=== PATIENT | female | born 1945 | race Two or more races ===

== ENCOUNTER 2016-04-06 15:41 | Emergency (ER) | payer MEDICARE, OTHER ==
[~2016-04-06] VITALS: Ht 160 cm; Wt 77.1 kg
[2016-04-06] MEDS ORDERED: SYNTHROID75 MCG ORAL (15:59)
--- NOTE | 2016-04-06 16:28 | Emergency Room Report ---
History of Present Illness General Chief Complaint: Eye Problems Source: Patient Present Illness HPI 70-year-old female presents emergency department complaining of bilateral itchy , watery eyes with discharge x3 days. Patient has a history of allergies. Denies photophobia, fb sensation, or eye pain. Patient also reports increasing urinary frequency denies hematuria or dysuria. Patient denies nausea, vomiting , fevers, chills. Patient reports recent upper respiratory illness consisting of sneezing, nasal congestion and rhinorrhea. Pt also complains of itchy rash of the scalp x 2 weeks. Denies CP, Palpitations, LOC, AMS, dizziness, Changes in Vision, Sensation, paresthesias, or a sudden severe headache. Patient also is requesting medication refill of meclizine which she takes intermittently for dizziness at nighttime. Allergies: Coded Allergies: No Known Allergies (Unverified , 04/06/16) Patient History Past Medical History: see triage record Past Surgical History: none Pertinent Family History: none Now: No Immunizations: UTD Reviewed Nursing Documentation: PMH: Agreed, PSxH: Agreed Nursing Documentation-PMH Past Medical History: No History, Except For Hx Hypertension: Yes Review of Systems All Other Systems: negative except mentioned in HPI Physical Exam Vital Signs Date Time Temp Pulse Resp B/P Pulse Ox O2 Delivery O2 Flow Rate FiO2 04/06/16 15:54 97.7 86 16 149/86 100 Room Air Sp02 EP Interpretation: reviewed, normal General Appearance: no apparent distress, alert, GCS 15, non-toxic Head: normocephalic, atraumatic Eyes: bilateral eye PERRL, bilateral eye normal inspection, bilateral eye other - white d/c noted with increased lacrimation bilaterally, no erythema noted at this time. no evidence of infestation. ENT: hearing grossly normal, normal pharynx, no angioedema, normal voice, TMs + canals normal, uvula midline, moist mucus membranes Neck: full range of motion, supple/symm/no masses Respiratory: chest non-tender, lungs clear, normal breath sounds, speaking full sentences Cardiovascular #1: regular rate, rhythm, no edema Gastrointestinal: normal bowel sounds, non tender, soft, no guarding, no rebound Rectal: deferred Genitourinary: normal inspection, no CVA tenderness Neurologic: alert, oriented x3, responsive, motor strength/tone normal, sensory intact, cerebellar normal, normal gait, speech normal, no pronator, other - no dizziness at this time. negative kitchen's sign Psychiatric: judgement/insight normal, memory normal, mood/affect normal, no suicidal/homicidal ideation Skin: normal color, warm/dry, well hydrated, rash - scaling rash noted on the scalp diffusely suspicious for sebhorreic dermatitis. no evidence of infestion / lice noted. Lymphatic: no adenopathy Medical Decision Making PA Attestation Dr. Shields is my supervising Physician whom patient management has been discussed with. Diagnostic Impression: Primary Impression: Conjunctivitis of both eyes Qualified Codes: H10.33 - Unspecified acute conjunctivitis, bilateral Additional Impression: Tinea capitis ER Course 70-year-old female presents emergency department complaining of bilateral itchy , watery eyes with discharge x3 days. Patient has a history of allergies. Denies photophobia, fb sensation, or eye pain. Patient also reports increasing urinary frequency denies hematuria or dysuria. Patient denies nausea, vomiting , fevers, chills. Patient reports recent upper respiratory illness consisting of sneezing, nasal congestion and rhinorrhea. Pt also complains of itchy rash of the scalp x 2 weeks.and requiring a medication refill for meclizine. no vertigo at this time. pt. states intermittently requires meclizine at bedtime for dizziness sensations. Ddx considered but are not limited to: corneal abrasion, acute glaucoma, globe rupture, FB, Corneal Ulcer, conjunctivitis. Iridis, orbital cellulitis,keratitis , sinusitis, dermatitis, tinea, UTI Vital signs: are WNL, pt. is afebrile H&PE are most consistent with: conjunctivitis of both eyes most likely allergic , however will tx with abx. due to presence of d/c noted. pt. also has rash suspicious for tinea capitis/seborrheic dermatitis. ORDERS: -UA: wnl /unremarkable no evidence of infection ED INTERVENTIONS: none at this time. DISCHARGE: At this time pt. is stable for d/c to home. Will provide printed patient care instructions, and any necessary prescriptions. Care plan and follow up instructions have been discussed with the patient prior to discharge. Labs Test 04/06/16 16:40 Urine Color Pale yellow Urine Appearance Clear Urine pH 6 (4.5-8.0) Urine Specific Reading 1.010 (1.005-1.035) Urine Protein Negative (NEGATIVE) Urine Glucose (UA) Negative (NEGATIVE) Urine Ketones Negative (NEGATIVE) Urine Occult Blood 1+ (NEGATIVE) Urine Nitrite Negative (NEGATIVE) Urine Bilirubin Negative (NEGATIVE) Urine Urobilinogen Normal MG/DL (0.0-1.0) Urine Leukocyte Esterase 1+ (NEGATIVE) Urine RBC 0-2 /HPF (0 - 2) Urine WBC 2-4 /HPF (0 - 2) Urine Squamous Epithelial Cells Few /LPF (NONE/OCC) Urine Bacteria Few /HPF (NONE) Last Vital Signs Date Time Temp Pulse Resp B/P Pulse Ox O2 Delivery O2 Flow Rate FiO2 04/06/16 15:54 97.7 86 16 149/86 100 Room Air Disposition: HOME, SELF-CARE Condition: Stable Scripts Meclizine Hcl* (MECLIZINE*) 25 Mg Tablet 25 MG ORAL THREE TIMES A DAY, #9 TAB Prov: Nimisha Guevara 04/06/16 Selenium Sulfide (SELENIUM SULFIDE) 180 Ml Shampoo 1 APPLIC TP 3XW, #180 ML Prov: Nimisha Guevara.AArgelia 04/06/16 Ofloxacin (OCUFLOX) 5 Ml Drops 3 DROP OP BID, #5 ML Prov: Nimisha Guevara 04/06/16 Epinastine Hcl (EPINASTINE HCL) 5 Ml Drops 1 DROP OP BID Y for Itching, #5 ML Prov: Nimisha Guevara 04/06/16 Patient Instructions: Bacterial Conjunctivitis, [id number], Seborrheic Dermatitis Additional Instructions: Take medications as directed. Follow up with PCP in 3-5 days Return sooner to ED if new symptoms occur, or current symptoms become worse. Nimisha Guevara Apr 06, 2016 16:28
[2016-04-06 16:59] LABS: APPEARANCE,URINE CLEAR; KETONES,URINE NEGATIVE (NEGATIVE); LEUKOCYTE ESTERASE ,URINE 1+ (NEGATIVE); NITRITE,URINE NEGATIVE (NEGATIVE); PH,URINE 6 (4.5-8.0); PROTEIN,URINE NEGATIVE (NEGATIVE); UROBILINOGEN,URINE NORMAL MG/DL (0.0-1.0)
[2016-04-06 17:11] LABS: BACTERIA,URINE FEW /HPF; RBC,URINE 0-2 /HPF (0 - 2); SQUAMOUS EPITHELIAL CELL,UR FEW /LPF (NONE/OCC)
[2016-04-06] MEDS ORDERED: EPINASTINE HCL5 ML OP (17:48)
[2016-04-06] MEDS ORDERED: MECLIZINE HCL25 MG ORAL (17:48)
[2016-04-06] MEDS ORDERED: SELENIUM SULFI180 ML TP (17:48)
[2016-04-06] MEDS ORDERED: OCUFLOX5 ML OP (17:48)
[2016-04-06 17:55] VITALS: BP 146/81
[2016-04-06 18:10] VITALS: BP 146/81
== END 2016-04-06 18:11 | disposition home or self-care (01) ==
LOC: EMR 16:45
DX: H10.33 Unspecified acute conjunctivitis, bilateral (principal); B35.0 Tinea barbae and tinea capitis; I10 Essential (primary) hypertension
CPT/HCPCS: 81003; 99284